=== PATIENT | male | born 1945 | race Caucasian/White ===

== ENCOUNTER → 2016-07-25 | Outpatient (REF) | payer OTHER, MEDICARE, BC ==
[2016-07-25 19:43] LABS: PERCENT SATURATION 49.5 % (19.7-37.4)
[2016-07-25 19:53] LABS: INR 1.2
== END ==
LOC: M LAB REF 17:24
PROVIDERS: ATTEND Internal Medicine
DX: K70.31 Alcoholic cirrhosis of liver with ascites (principal)

== ENCOUNTER → 2016-07-30 | Outpatient (REF) | payer OTHER, MEDICARE, BC | LOC: M SFHCPLAZ 11:32 | PROVIDERS: ATTEND Dermatology | DX: C44.320 Squamous cell carcinoma of skin of unspecified parts of face (principal); C44.529 Squamous cell carcinoma of skin of other part of trunk; D22.71 Melanocytic nevi of right lower limb, including hip; D23.39 Other benign neoplasm of skin of other parts of face ==

== ENCOUNTER → 2016-08-15 | Outpatient (CLI) | payer BC, OTHER, MEDICARE ==
[~2016-08-15] MED LIST: LIDOCAINE 1% MDV 20ML VIAL As Ordered ONE
--- NOTE | 2016-08-15 16:56 | REP ---
ULTRASOUND GUIDED LIVER BIOPSY: The procedure was performed under the direct supervision of Dr. Iverson. The risks and benefits of the procedure were explained to the patient and informed consent was obtained. The left lobe of the liver was localized using ultrasound guidance. The skin was prepped and draped in a sterile fashion. 1% Xylocaine was used as a local anesthetic. Using ultrasound guidance a 19/20-gauge coaxial needle biopsy system was inserted and advanced into the liver. 7 core biopsy samples were obtained and sent to the lab. The patient tolerated the procedure well and there were no immediate complications. After the appropriate amount of monitored convalescence the patient was discharged from the department. Reviewed by JEANNETTE Whitney 08/18/2016 05:02 PEdited and Signed by Vince Iverson MD 08/18/2016 06:53 P
== END | disposition home or self-care (01) ==
LOC: M RADPRO 09:10
PROVIDERS: ATTEND Internal Medicine
DX: K70.30 Alcoholic cirrhosis of liver without ascites (principal); E83.119 Hemochromatosis, unspecified; I10 Essential (primary) hypertension; F17.210 Nicotine dependence, cigarettes, uncomplicated; Z79.899 Other long term (current) drug therapy

== ENCOUNTER → 2016-08-28 | Outpatient (REF) | payer OTHER, BC, MEDICARE | LOC: M LAB REF 12:42 | PROVIDERS: ATTEND Dermatology | DX: C44.329 Squamous cell carcinoma of skin of other parts of face (principal) ==

== ENCOUNTER → 2016-09-16 | Outpatient (REF) | payer OTHER, BC, MEDICARE | LOC: M LAB REF 14:00 | PROVIDERS: ATTEND Surgery | DX: C44.529 Squamous cell carcinoma of skin of other part of trunk (principal) ==

== ENCOUNTER → 2016-10-02 | Outpatient (REF) | payer OTHER, MEDICARE, BC ==
[2016-10-02 16:49] LABS: PERCENT SATURATION 44.1 % (19.7-37.4)
== END ==
LOC: M LAB REF 16:28
PROVIDERS: ATTEND Internal Medicine
DX: E83.119 Hemochromatosis, unspecified (principal)

== ENCOUNTER → 2016-11-03 | Outpatient (CLI) | payer BC, OTHER, MEDICARE ==
--- NOTE | 2016-11-03 20:41 | REP ---
Clinical: Atraumatic pain. Technique: AP, lateral, bilateral oblique views of the right third digit. Findings: Advanced osteoarthritic degenerative changes are appreciated primarily involving the interphalangeal joints. Findings include marginal osteophytes, subchondral sclerosis, joint space narrowing and chondrocalcinosis along with periarticular soft tissue swelling. No acute fracture dislocation. 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 Signed by Bret Field MD 11/03/2016 08:32 P
== END ==
LOC: M WUC 15:56
PROVIDERS: ATTEND Physician Assistant
DX: M19.049 Primary osteoarthritis, unspecified hand (principal); S60.031A Contusion of right middle finger without damage to nail, initial encounter; X58.XXXA Exposure to other specified factors, initial encounter; Y92.89 Other specified places as the place of occurrence of the external cause; Y93.89 Activity, other specified; Y99.8 Other external cause status

== ENCOUNTER → 2016-11-25 | Outpatient (REF) | payer OTHER, BC, MEDICARE ==
[2016-11-25 15:17] LABS: PERCENT SATURATION 37.4 % (19.7-50.0)
== END ==
LOC: M LAB REF 14:55
PROVIDERS: ATTEND Internal Medicine
DX: D64.9 Anemia, unspecified (principal)

== ENCOUNTER → 2017-02-24 | Outpatient (REF) | payer BC, OTHER, MEDICARE ==
[2017-02-24 19:15] LABS: PERCENT SATURATION 46.6 % (19.7-50.0)
== END ==
LOC: M LAB REF 17:33
PROVIDERS: ATTEND Internal Medicine
DX: D64.9 Anemia, unspecified (principal)

== ENCOUNTER → 2017-07-21 | Outpatient (REF) | payer BC, OTHER, MEDICARE ==
[2017-07-21 18:57] LABS: FERRITIN 1045 NG/ML (26-388); IRON (FE) 190 UG/DL (65-175); PERCENT SATURATION 63.3 % (19.7-50.0); TOTAL IRON BINDING CAPACITY 300 UG/DL (250-450)
[2017-07-21 19:13] LABS: FOLATE 3.7 NG/ML; VITAMIN B12 LEVEL 272 PG/ML
== END ==
LOC: M LAB REF 17:19
DX: D64.9 Anemia, unspecified (principal); E83.119 Hemochromatosis, unspecified; R26.89 Other abnormalities of gait and mobility
CPT/HCPCS: 82746

== ENCOUNTER → 2018-07-16 | Outpatient (REF) | payer OTHER, MEDICARE, BC ==
[2018-07-16 18:40] LABS: PERCENT SATURATION 102.1 % (19.7-50.0)
== END ==
LOC: M LAB REF 16:24
PROVIDERS: ATTEND Internal Medicine
DX: K70.31 Alcoholic cirrhosis of liver with ascites (principal); E83.119 Hemochromatosis, unspecified

== ENCOUNTER → 2018-08-17 | Outpatient (REF) | payer OTHER, MEDICARE, BC | LOC: M LAB REF 16:41 | PROVIDERS: ATTEND Internal Medicine | DX: K70.30 Alcoholic cirrhosis of liver without ascites (principal) ==

== ENCOUNTER → 2018-11-29 | Outpatient (REF) | payer OTHER, MEDICARE, BC ==
[2018-11-29 16:55] LABS: PERCENT SATURATION 71.4 % (19.7-50.0)
== END ==
LOC: M LAB REF 16:16
PROVIDERS: ATTEND Internal Medicine
DX: E83.119 Hemochromatosis, unspecified (principal)

== ENCOUNTER → 2019-08-22 | Outpatient (REF) | payer OTHER, MEDICARE, BC | LOC: M LAB REF 11:37 | PROVIDERS: ATTEND Internal Medicine | DX: K70.30 Alcoholic cirrhosis of liver without ascites (principal); E87.6 Hypokalemia ==

== ENCOUNTER → 2019-12-12 | Outpatient (REF) | payer OTHER, MEDICARE, BC ==
[2019-12-12 17:04] LABS: INR 1.22; PROTHROMBIN TIME 15.6 SECONDS (12.5-14.3)
== END ==
LOC: M LAB REF 16:11
PROVIDERS: ATTEND Internal Medicine
DX: K70.30 Alcoholic cirrhosis of liver without ascites (principal)

== ENCOUNTER → 2020-07-20 | Outpatient (REF) | payer OTHER, MEDICARE, BC ==
[2020-07-20 17:14] LABS: INR 1.19; PROTHROMBIN TIME 15.4 SECONDS (12.5-14.3)
== END ==
LOC: M LAB REF 16:47
PROVIDERS: ATTEND Internal Medicine
DX: K70.30 Alcoholic cirrhosis of liver without ascites (principal)

== ENCOUNTER → 2020-08-08 | Outpatient (CLI) | payer BC, OTHER, MEDICARE ==
--- NOTE | 2020-08-08 10:25 | REP ---
INDICATION: CIRRHOSIS / LT CAROTID BRUIT COMPARISON: None. TECHNIQUE: Real time quintana scale ultrasound examination using curved array transducer. FINDINGS: Liver demonstrates coarsened echotexture with nodular contour and patent umbilical vein consistent with cirrhosis. Pancreas is incompletely evaluated due to interposed bowel gas. The gallbladder demonstrates small amount of layering sludge/gravel without wall thickening, or pericholecystic fluid. No biliary ductal dilatation is appreciated and the common bile duct measures 4.0 mm diameter. Right kidney is normal in reniform shape without hydronephrosis and measures 10.9 x 6.2 x 5.0 cm. No ascites in the visualized right upper quadrant. IMPRESSION: 1. Findings consistent with cirrhosis. 1. Cholelithiasis. <Electronically signed by Bret Field > 08/08/20 1026
--- NOTE | 2020-08-08 10:33 | REP ---
INDICATION: CIRRHOSIS / LT CAROTID BRUIT COMPARISON: None. TECHNIQUE: Fox scale and color Doppler evaluation using linear high frequency transducer Findings: FINDINGS: Two-dimensional fox scale and color images demonstrate moderate amounts of mixed atheromatous plaquing through the bilateral common carotid arteries extending to the carotid bulbs and proximal portions of the internal and external carotid arteries (left greater than right). Color Doppler interrogation demonstrates arterial wave patterns with elements of spectral broadening. Normal flow direction is appreciated in the bilateral vertebral arteries. ICA peak systolic velocity: Right 100.9 cm/s; Left 110.0 cm/s ICA diastolic velocity: Right 29.0 cm/s; Left 27.8 cm/s ECA peak systolic velocity: Right 103.0 cm/s; Left 380.4 cm/s CCA peak systolic velocity: Right 92.5 cm/s; Left 114.8 cm/s ICA/CCA ratio: Right 1.10 cm/s; Left 1.00 cm/s IMPRESSION: 1. Narrowing through the internal carotid arteries in the less than 50% range. 2. Focal narrowing through the proximal left external carotid artery possibly approaching 70%. <Electronically signed by Bret Field > 08/08/20 2360
== END ==
LOC: M RAD 09:05
PROVIDERS: ATTEND Internal Medicine
DX: K70.30 Alcoholic cirrhosis of liver without ascites (principal); R09.89 Other specified symptoms and signs involving the circulatory and respiratory systems

== ENCOUNTER → 2020-12-07 | Outpatient (REF) | payer OTHER, MEDICARE, BC ==
[2020-12-07 16:38] LABS: INR 1.13; PROTHROMBIN TIME 14.9 SECONDS (12.7-14.5)
== END ==
LOC: M LAB REF 16:08
PROVIDERS: ATTEND Internal Medicine
DX: K70.30 Alcoholic cirrhosis of liver without ascites (principal)

== ENCOUNTER → 2021-07-24 | Outpatient (REF) | payer OTHER, MEDICARE, BC ==
[2021-07-24 17:45] LABS: INR 1.2; PROTHROMBIN TIME 15.6 SECONDS (12.7-14.5)
[2021-07-24 17:46] LABS: PARTIAL THROMBOPLASTIN TIME 39.4 SECONDS (25.9-37.0)
== END ==
LOC: M LAB REF 16:53
PROVIDERS: ATTEND Internal Medicine
DX: K70.30 Alcoholic cirrhosis of liver without ascites (principal); C61 Malignant neoplasm of prostate

== ENCOUNTER → 2021-08-19 | Outpatient (CLI) | payer MEDICARE, BC | LOC: M RAD 08:07 | PROVIDERS: ATTEND Internal Medicine | DX: K70.31 Alcoholic cirrhosis of liver with ascites (principal) ==

== ENCOUNTER → 2022-08-01 | Outpatient (REF) | payer MEDICARE, BC | LOC: M LAB REF 16:27 | PROVIDERS: ATTEND Internal Medicine | DX: K70.30 Alcoholic cirrhosis of liver without ascites (principal) ==

== ENCOUNTER → 2022-08-22 | Outpatient (CLI) | payer MEDICARE, BC | LOC: M RAD 08:47 | PROVIDERS: ATTEND Internal Medicine | DX: K74.60 Unspecified cirrhosis of liver (principal) ==

== ENCOUNTER → 2023-02-23 | Outpatient (CLI) | payer MEDICARE, BC | LOC: M WHC 09:06 | PROVIDERS: ATTEND Internal Medicine | DX: K70.30 Alcoholic cirrhosis of liver without ascites (principal); K80.20 Calculus of gallbladder without cholecystitis without obstruction ==

== ENCOUNTER → 2023-08-05 | Outpatient (REF) | payer MEDICARE, BC | LOC: M LAB REF 12:44 | PROVIDERS: ATTEND Internal Medicine | DX: K70.30 Alcoholic cirrhosis of liver without ascites (principal) ==

== ENCOUNTER → 2023-09-02 | Outpatient (CLI) | payer MEDICARE, BC | LOC: M RAD 09:18 | PROVIDERS: ATTEND Internal Medicine | DX: K70.30 Alcoholic cirrhosis of liver without ascites (principal) ==

== ENCOUNTER → 2023-09-15 | Outpatient (CLI) | payer MEDICARE, BC | LOC: M RAD 12:01 | PROVIDERS: ATTEND Internal Medicine | DX: I65.23 Occlusion and stenosis of bilateral carotid arteries (principal) ==

== ENCOUNTER → 2023-12-11 | Outpatient (REF) | payer MEDICARE, BC ==
[2023-12-11 16:38] LABS: INR 1.23; PROTHROMBIN TIME 15.1 SECONDS (12.5-14.5)
== END ==
LOC: M LAB REF 16:07
PROVIDERS: ATTEND Internal Medicine
DX: K70.30 Alcoholic cirrhosis of liver without ascites (principal)

== ENCOUNTER → 2024-02-24 | Outpatient (REF) | payer MEDICARE, BC | LOC: M LAB REF 16:37 | PROVIDERS: ATTEND Physician Assistant Medical | DX: K70.30 Alcoholic cirrhosis of liver without ascites (principal); K70.0 Alcoholic fatty liver ==

== ENCOUNTER → 2024-07-25 | Outpatient (REF) | payer MEDICARE, BC | LOC: M LAB REF 17:43 | PROVIDERS: ATTEND Internal Medicine | DX: K70.30 Alcoholic cirrhosis of liver without ascites (principal) ==

== ENCOUNTER → 2024-09-16 | Outpatient (CLI) | payer MEDICARE, BC ==
[~2024-09-16] MED LIST changes: +ALBU8.5H; +ATEN25TA PO; +CARV3.12 PO; +DIGO0.253 PO; +ELIQ5TAB PO; +ERGO500029 PO; +FURO20TA2 PO; -LIDOCAINE 1% MDV 20ML VIAL As Ordered ONE; +POTA1TAB23 PO; +PRES1CAP PO; +SPIR-10 PO
[2024-09-16 15:12] LABS: BASO # 0.1 10^3/uL (0.0-0.2); BASO % 0.9 % (0.0-1.0); EOS # 0.1 10^3/uL (0.0-0.5); EOS % 1.0 % (0.0-3.0); LYMPH # 2.2 10^3/uL (1.5-5.0); LYMPH % 21.4 % (24.0-44.0); MONO # 1.0 10^3/uL (0.0-0.8); MONO % 9.7 % (2.0-8.0); NEUTROPHILS # 6.8 10^3/uL (1.5-8.5); NEUTROPHILS % 65.7 % (36.0-66.0); PLATELET COUNT, AUTOMATED 157 10^3/uL (150-450)
[2024-09-16 15:17] LABS: ERYTHROCYTE SEDIMENTATION RATE 16 mm/hr (0-20)
== END ==
LOC: M LAB 14:12
PROVIDERS: ATTEND Physician Assistant
DX: Z95.0 Presence of cardiac pacemaker (principal)

== ENCOUNTER → 2024-09-19 | Outpatient (REF) | payer MEDICARE, BC | LOC: M SFHCDERM 17:34 | PROVIDERS: ATTEND Nurse Practitioner Family | DX: C44.321 Squamous cell carcinoma of skin of nose (principal) ==